=== PATIENT | male | born 1950 | race Caucasian/White ===

== ENCOUNTER 2021-01-16 16:06 | Inpatient (IN) | payer OTHER ==
[~2021-01-16] VITALS: Ht 175.3 cm; Wt 95.3 kg
[2021-01-16] MEDS ORDERED: NORVASC5 MG PO (17:43)
[2021-01-16] MEDS ORDERED: ASA81BEC PO (17:43)
[2021-01-16] MEDS ORDERED: ZYRTEC 10 MG TA10 MG PO (17:44)
[2021-01-16] MEDS ORDERED: CHLORTHALIDONE25 MG PO (17:45)
[2021-01-16] MEDS ORDERED: FLONASE 0.05%50 MCG NARES (17:47)
[2021-01-16] MEDS ORDERED: GLUCOSAMINE DA1 EACH PO (17:48)
[2021-01-16] MEDS ORDERED: MELOXICAM15 MG PO (17:50)
[2021-01-16] MEDS ORDERED: CANDICIDAL CAP1 EACH PO (17:51)
[2021-01-16] MEDS ORDERED: MULTI VITAMIN1 EACH PO (17:52)
[2021-01-16] MEDS ORDERED: FISH OIL 1,001000 M3 PO (17:53)
[2021-01-16] MEDS ORDERED: BENICAR40 MG PO (17:53)
[2021-01-16] MEDS ORDERED: MIRALAX119 GM PO ×2 (17:53→18:00)
[2021-01-16] MEDS ORDERED: PRAVACHOL40 MG PO (18:01)
[2021-01-16] MEDS ORDERED: EFFEXOR XR75 MG PO (18:01)
[2021-01-16 19:30] VITALS: BP 113/83
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
[2021-01-17 05:54] LABS: CHOLESTEROL 161 mg/dL (<200); HDL CHOLESTEROL 39 mg/dL (>40); LDL CHOLESTEROL 91 mg/dL (<100); TC:HDL 4.1 Ratio (Not establshd); TRIGLYCERIDE 157 mg/dL (<150); VLDL 31 mg/dL (<40)
[2021-01-17 06:09] LABS: SERUM ASSESSMENT Clear
--- NOTE | 2021-01-17 10:14 | NUR ---
PATIENT HAS BEEN UP, AND OUT ON THE UNIT, PARTICIPATES IN GROUP THERAPY. PATIENT TOOK ALL MEDICATION WHOLE WITHOUT DIFFICLTY, HE IS EATING MEALS, AND DRINKING FLUID WELL. PATIENT DENIES SUICIDAL/HOMICIDAL IDEATION, HE DENIES AUDITORY/VISUAL HALLUCINATION. PATIENT RATES DEPRESSION 8/10, RATES ANXIETY 7/10, HE RATES BACK PAIN 3/10, GETS MOBIC FOR PAIN. AFFECT IS FLAT/BLUNTED, MOOD IS DEPRESSED. NO SIGN OF ACUTE DISTRESS NOTED AT THIS TIME, WILL MONITOR FOR SAFETY.
[2021-01-17 10:32] VITALS: BP 102/73
--- NOTE | 2021-01-17 13:26 | NUR ---
Assess due to new admit to [facility] for depression and panic attacks. Pt has been caring for who had stroke. Pt reports very poor appetite past few days, usually eats well. No wt loss. Assisted pt ordering dinner for tonight. Expect appetite to improve as depression is treated. Low nutrition risk
[2021-01-17 20:06] VITALS: BP 110/83
[2021-01-17 20:20] VITALS: BP 110/83
[2021-01-18 00:06] LABS: GLYCOHEMOGLOBIN (HGB A1C) 5.7 % (4.8-5.6)
--- NOTE | 2021-01-18 04:30 | NUR ---
PT CARE WAS RESUMED AT 1900 AND HE WAS SITTING IN THE DINING AREA SOCILAIZING WITH OTHER PATINETS. HE IS ALER AND ORINETD AND ABLE TO VERBALISE HIS NEEDS. HE TOOK HIS MED WHOLE.LUNGS ARE CLEAR,BS ACTIVE X 4 QUAD, ABD IS NON TENDER. HE DENIES ANY DISCOMFORT BUT REQESTED FOR HIS SLEEPING MED WHICH WAS ADMININSTERED WITH GOOD EFFECT.HE USE A C- PAP AND THE RT WAS NOTIFED FOR SET UP AND HE HAD STAFF SITTING WITH HIM WHILE HE SLEEPS. NO BEHAVOIR NOTED AT THIS SHIFT BUT PATINET COMPLAINED OF OTHER PATINETS NOT ACTING RIGHT SUCH WANDERING,SCREAMING AND ACTING ODD. BED WAS LOW, AND LOCK. PT SLEPT GOOD CONTINUE CARE AND MONITOR Q 12MINUES.
[2021-01-18 08:40] VITALS: BP 111/66
[2021-01-18 12:30] VITALS: BP 111/66
--- NOTE | 2021-01-18 13:02 | NUR ---
Alert and orientated X4. Pt wants to go home. States he has not able to eat since he has been here d/t quality of food. Also unhappy with groups and that he has only seen psychiatrist once since admit. Questioning meds and states that he believes he can do therapy as an outpatient while eating his 's food. Denies SI/HI. Breath sounds clear. Reg HR auscultated. Color pink with brisk capillary refill and palpable peripheral pulses. Independent with voiding. States last BM was 4 days ago, milk of magnesia given per prn order. Refused 1300 dose of miralax. Active bowel sounds over soft, rounded abdomen. Signed AMA form for discharge. Discharged home in care on son with belongings. Signed forms. No s/o distress.
--- NOTE | 2021-01-18 13:09 | NUR ---
CATARINO and Dr. Fallon spoke with the Pt today outside of his room. Pt requesting to leave. It was explained to the Pt that if discharged it would be AMA due to not being able to have an aftercare plan set up. Pt stated he wanted to leave and felt he could talke care of setting up all his aftercare at home. Pt did put his request in writing. CATARINO called the Pt's Nupur, , concerning the matter. Nupur stated the Pt reported not speaking to the doctor and the Pt being in a residential setting. CATARINO informed the Pt was interviews by CATARINO and Dr. Fallon on 01/17/2021. SW also explained the units services and day to day. Nupur expressed being displeased with services being offered. Kaleb expressed she had not heard from anyone although she had spoken to nursing. Nupur requested a call back from Dr. Fallon. Dr. Fallon and CATARINO called Nupur. Pt was included on this phone call. Dr. Fallon explained Pt will be discharged AMA. The family requested referrals for otpt services Dr. Fallon informed that due to Pt leavin AMA there has been no time to set up aftercare services. The family began to ask what the treatment plan was. Dr. Fallon informed again that the Pt is being discharged AMA. Pt set to d.c @ 1300. Family will transport
[2021-01-18 13:13] VITALS: BP 111/66
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
--- NOTE | 2021-01-21 09:31 | D ---
[facility] [place] [address] DISCHARGE SUMMARY Name: RAMOS GARZON Room #: 522A-A [facility] IN M.R.#: [id number] Admission: 01/16/21 Attend Phys: Safia Bravo DO Discharge: 01/18/21 Date of : 54 Report #: [id number] THIS REPORT FOR: cc: TAY TAVERA Physician not on staff Safia Bravo DO ~ DOC #: [id number] SAFIA Bravo DO INPATIENT PSYCHIATRIC DISCHARGE SUMMARY Please note this is a discharge against medical advice by the patient and initiated by his signed written date of request on 01/18. ATTENDING PSYCHIATRIST: Safia Bravo DO PERSONAL INJURY ATTORNEY: Safia Munoz M.D. DISCHARGE DIAGNOSES: Major depressive disorder, single episode, severe degree. Additional psychiatric comorbidities, unspecified anxiety. Medical comorbidities; chronic back pain, degenerative joint disease, hypertension, hyperlipidemia, obstructive sleep apnea on continuous positive airway pressure, benign prostatic hypertrophy. The patient is discharged AMA to his home where he lives with his . Family is picking him up at 1:00 p.m. on 01/18. Given an AMA discharge, we were unable to set up aftercare, prescriptions were provided. Medications taken at the time of discharge, amlodipine 5 mg daily, cetirizine 10 mg oral daily, Chlorthalidone 25 mg oral daily, Flonase 2 sprays each nostril daily, multivitamin oral daily, olmesartan 40 mg oral daily, omega 3 fatty acids, MiraLax, pravastatin, venlafaxine XR 75 mg daily, venlafaxine was for depression and pravastatin for hyperlipidemia, MiraLax for constipation. [place] 3 fatty acid supplement, olmesartan for hypertension, multivitamin supplement, Flonase for allergic rhinitis, chlorthalidone for hypertension, cetirizine for allergic rhinitis, amlodipine for hypertension. Obviously, no smoking, alcohol or illicit drugs. The patient was given crisis suicide hotline information. Laboratories on admission A1c 5.7, triglycerides 157, cholesterol 161, LDL 91, HDL 39. The patient was transferred to us from [facility], so remaining laboratories were done at that facility, refer to [facility] records. REASON FOR ADMISSION: A 70-year-old male, mildly obese, sent over for severe depression with anxiety. The patient's was ill recently. The patient had made vague suicidal reference. The patient has had recent strife with son and [id number]-ls-akp over politics. [facility] [address] [place] [address] DISCHARGE SUMMARY Name: RAMOS GARZON Room #: 522A-A [facility] IN M.R.#: [id number] Admission: 01/16/21 Attend Phys: Safia Bravo, Discharge: 01/18/21 Date of : 54 Report #: [id number] HOSPITAL COURSE: The patient was admitted to Geriatric Psychiatry Unit. His initial day here was okay. He did not sleep well. He did not like the milieu. He found disturbing disruptive. He was unable to wait until Friday for discharge by his own choosing. We had a brief family meeting with his and daughter. We explained that we would need him to stay another day to do a proper aftercare planning. The patient was not willing to wait, therefore became against medical advice situation. CONDITION AT DISCHARGE: Guarded given [facility] nature of his situation. PHYSICAL EXAMINATION: VITAL SIGNS: On the day of discharge, temperature 36.3, pulse 78, respirations 70, BP 111/76. MUSCULOSKELETAL: Well developed, unkempt, obese male. normal gait and station MENTAL STATUS EXAMINATION: This is a well-developed male. Attention, concentration fair. Speech normal rate and tone. Thought process, linear and goal oriented. Thought content, focused on discharge. Mood constricted, congruent, somewhat irritable. Denied suicidal or homicidal ideation, auditory, visual, or tactile hallucinations. Memory was not formally tested on the day of discharge. Insight limited. Judgment fair to limited. Fund of knowledge, average range at least. Prognosis for this patient is guarded given his AMA discharge and he is urged to seek further psychiatric care such as [facility] program [facility]. DO RAKAN Gay/CHERYL/CLIFFORD <ELECTRONICALLY SIGNED> By: Safia Bravo DO 01/21/21 0931 [id number] Safia Bravo DO /nt
== END 2021-01-18 13:00 | disposition left against medical advice (07) | DRG 885 ==
LOC: SBH
PROVIDERS: ADMIT Psychiatry & Neurology Psychiatry; ATTEND Psychiatry & Neurology Psychiatry
PROC: 5A09457 Assistance with Respiratory Ventilation, 24-96 Consecutive Hours, Continuous Positive Airway Pressure (ICD-10-PCS; principal; 2021-01-16)
DX: F32.2 Major depressive disorder, single episode, severe without psychotic features (principal); E78.5 Hyperlipidemia, unspecified; N40.0 Benign prostatic hyperplasia without lower urinary tract symptoms; I10 Essential (primary) hypertension; M19.90 Unspecified osteoarthritis, unspecified site; G47.33 Obstructive sleep apnea (adult) (pediatric); G89.29 Other chronic pain; M54.9 Dorsalgia, unspecified; F41.1 Generalized anxiety disorder; Z96.651 Presence of right artificial knee joint; Z53.29 Procedure and treatment not carried out because of patient's decision for other reasons; Z82.49 Family history of ischemic heart disease and other diseases of the circulatory system; Z88.8 Allergy status to other drugs, medicaments and biological substances; Z90.49 Acquired absence of other specified parts of digestive tract; Z79.82 Long term (current) use of aspirin; Z79.899 Other long term (current) drug therapy
CPT/HCPCS: 10880

== ENCOUNTER 2021-01-16 17:36 | Emergency (ER) | payer OTHER ==
[~2021-01-16] VITALS: Ht 175.3 cm; Wt 95.3 kg
[2021-01-16] MEDS ORDERED: NORVASC5 MG PO (17:43)
[2021-01-16] MEDS ORDERED: ASA81BEC PO (17:43)
[2021-01-16] MEDS ORDERED: ZYRTEC 10 MG TA10 MG PO (17:44)
[2021-01-16] MEDS ORDERED: CHLORTHALIDONE25 MG PO (17:45)
[2021-01-16] MEDS ORDERED: FLONASE 0.05%50 MCG NARES (17:47)
[2021-01-16] MEDS ORDERED: GLUCOSAMINE DA1 EACH PO (17:48)
[2021-01-16] MEDS ORDERED: MELOXICAM15 MG PO (17:50)
[2021-01-16] MEDS ORDERED: CANDICIDAL CAP1 EACH PO (17:51)
[2021-01-16] MEDS ORDERED: MULTI VITAMIN1 EACH PO (17:52)
[2021-01-16] MEDS ORDERED: FISH OIL 1,001000 M3 PO (17:53)
[2021-01-16] MEDS ORDERED: MIRALAX119 GM PO ×2 (17:53→18:00)
[2021-01-16] MEDS ORDERED: BENICAR40 MG PO (17:53)
[2021-01-16] MEDS ORDERED: PRAVACHOL40 MG PO (18:01)
[2021-01-16] MEDS ORDERED: EFFEXOR XR75 MG PO (18:01)
[2021-01-16 18:45] VITALS: BP 102/51
== END 2021-01-16 18:46 ==
LOC: ER 17:36
DX: F41.9 Anxiety disorder, unspecified (principal); Z20.822 Contact with and (suspected) exposure to COVID-19; R45.851 Suicidal ideations; F32.9 Major depressive disorder, single episode, unspecified; Z88.1 Allergy status to other antibiotic agents; Z88.8 Allergy status to other drugs, medicaments and biological substances; Z79.899 Other long term (current) drug therapy